=== PATIENT | male | born 1995 | race Caucasian/White ===

== ENCOUNTER 2018-10-23 11:44 | Emergency (ER) | payer SELFPAY ==
[2018-10-23 12:46] VITALS: BP 136/77
[2018-10-23] MEDS ORDERED: Azithromycin TAB* 250 MG PO ONE (13:00)
[2018-10-23] MEDS ORDERED: cefTRIAXone VIAL(*) 250 MG VIAL IM ONE (13:00)
--- NOTE | 2018-10-23 13:05 | UC ---
Complaint Male HPI - HPI Summary HPI Summary: Mr. Beard has had dysuria and irritation to his glans for about a week. It started about a week after he had unprotected intercourse. He denies fever or chills or d/c. - History of Current Complaint Chief Complaint: [facility] Stated Complaint: URINARY COMPLAINT Time Seen by Provider: 10/23/18 12:32 Hx Obtained From: Patient Onset/Duration: Gradual Onset, Still Present Timing: Lasting Days Severity Initially: Mild Severity Currently: Mild Pain Intensity: 0 Location: Penis Character: Burning Aggravating Factor(s): Voiding Alleviating Factor(s): Nothing Associated Signs And Symptoms: Positive: Negative - Allergies/Home Medications Allergies/Adverse Reactions: Allergies Allergy/AdvReac Type Severity Reaction Status Date / Time No Known Allergies Allergy Verified 10/23/18 12:41 Home Medications: Home Medications NK [No Home Medications Reported] 10/23/18 [History Confirmed 10/23/18] PMH/Surg Hx/FS Hx/Imm Hx Previously Healthy: Yes - Surgical History Surgical History: None - Social History Alcohol Use: Occasionally Substance Use Type: Marijuana Substance Use Comment - Amount & Last Used: TWICE/MONTH; 10/20/18 Smoking Status (MU): Never Smoked Tobacco Review of Systems All Other Systems Reviewed And Are Negative: Yes Constitutional: Positive: Negative Skin: Positive: Negative Cardiovascular: Positive: Negative Gastrointestinal: Positive: Negative Genitourinary: Positive: Dysuria, Vaginal/Penile Pain Physical Exam - Summary Physical Exam Summary: He is nontoxic in appearance with stable vital signs Vital Signs: Initial Vital Signs Temp 98.6 F 10/23/18 12:41 Pulse 66 10/23/18 12:41 Resp 16 10/23/18 12:41 BP 136/77 10/23/18 12:41 Pulse Ox 100 10/23/18 12:41 ENT: Positive: Normal ENT inspection Respiratory Exam: Normal Abdominal Exam: Normal Male Genital Exam: Positive: Normal Genitalia Complaint Male Course/Dx - Differential Dx/Diagnosis Provider Diagnosis: Urethritis Discharge - Sign-Out/Discharge Documenting (check all that apply): Patient Departure All imaging exams completed and their final reports reviewed: Yes - Discharge Plan Condition: Stable Disposition: HOME Patient Education Materials: Nonspecific Urethritis in Men (ED) Referrals: No Primary Care Phys,NOPCP [Primary Care Provider] - - Billing Disposition and Condition Condition: STABLE Disposition: Home
[2018-10-23] MEDS ORDERED: Lidocaine 1% MPF* 2 ML VIAL ONE (13:25)
[2018-10-24 14:05] LABS: Neisseria gonorrhoeae (GC) RNA Negative (Negative)
== END 2018-10-23 13:59 | disposition home or self-care (01) ==
LOC: UCCORT 11:44
DX: N34.2 Other urethritis (principal)
CPT/HCPCS: 87491; 87591; 96372; 99202; A9270-GY; G0463; J0696